=== PATIENT | male | born 1990 | race African-American/Black ===

== ENCOUNTER 2022-09-30 09:28 | Emergency (ER) | payer OTHER ==
[~2022-09-30] VITALS: Ht 180.3 cm; Wt 75.0 kg
[2022-09-30 09:35] VITALS: TEMP 98
[2022-09-30] MEDS ORDERED: KETOROLAC TROMETHAMINE 30 MG/ML VIAL IM ONE (09:45)
[2022-09-30] MEDS ORDERED: CYCLOBENZAPRINE HCL 10 MG TABLET PO ONE (09:45)
[2022-09-30] MEDS ORDERED: LIDOCAINE 5% TRANSDERMAL PATCH TD ONE (09:45)
[2022-09-30] MEDS ORDERED: IBUP-1492 PO (12:15)
[2022-09-30] MEDS ORDERED: LIDO700A15 TP (12:15)
[2022-09-30] MEDS ORDERED: CYCL-448 PO (12:15)
[2022-09-30 12:16] VITALS: BP 126/72; PULSE 84; RESP 16
== END 2022-09-30 12:46 | disposition home or self-care (01) ==
LOC: EMS 09:28
DX: M54.2 Cervicalgia (principal); M54.9 Dorsalgia, unspecified
CPT/HCPCS: 99283; 96372; J1885